=== PATIENT | female | born 1990 | race Caucasian/White ===

== ENCOUNTER 2022-10-28 11:16 | Emergency (ER) | payer BC, MEDICAID ==
[~2022-10-28] VITALS: Ht 152.4 cm; Wt 59.0 kg
[2022-10-28 11:20] VITALS: BP 130/70
[2022-10-28 13:43] VITALS: BP 116/74
--- NOTE | 2022-10-28 13:43 | NUR ---
PATIENT LEFT WITHOUT BEING SEEN BY DR. HA. NO FURTHER CARE PROVIDED FOR PATIENT.
== END 2022-10-28 13:43 | disposition left against medical advice (07) ==
LOC: MED 11:16
DX: I45.9 Conduction disorder, unspecified (principal); Z53.21 Procedure and treatment not carried out due to patient leaving prior to being seen by health care provider
CPT/HCPCS: 99281